=== PATIENT | male | born 1995 | race Caucasian/White ===

== ENCOUNTER 2024-11-20 22:20 | Emergency (ER) | payer MEDICAID ==
[~2024-11-20] VITALS: Ht 185.4 cm; Wt 88.6 kg
[2024-11-20 22:24] VITALS: BP 130/89; PULSE 74; RESP 18; TEMP 96.9; O2SAT 98
== END 2024-11-21 02:26 | disposition left against medical advice (07) ==
LOC: EMS 22:22
DX: R51.9 Headache, unspecified (principal); Z53.21 Procedure and treatment not carried out due to patient leaving prior to being seen by health care provider

== ENCOUNTER 2024-11-24 23:17 | Emergency (ER) | payer SELFPAY ==
[~2024-11-24] VITALS: Ht 185.4 cm; Wt 88.6 kg
[2024-11-24 23:22] VITALS: TEMP 98.1
[2024-11-25] LABS: PLATELET COUNT (AUTO) 307 K/uL (150-450); RED BLOOD CELL COUNT(AUTO) 4.72 MIL/uL (4.50-5.90); RED CELL DISTRIBUTION WIDTH 15.7 % (11.5-14.5); WHITE BLOOD COUNT (AUTO) 4.3 K/uL (4.5-11.0)
[2024-11-25 00:04] LABS: CREATININE 1.03 mg/dL (0.60-1.30); GLUCOSE,RANDOM 99 mg/dL (70-110); SODIUM SERUM 140 mmol/L (136-145); UREA NITROGEN, BLOOD 14 mg/dL (7-18)
[2024-11-25 00:05] LABS: CALCIUM, TOTAL 8.8 mg/dL (8.8-10.5); GLOMERULAR FILTR. RATE CALC > 60 mL/min (>60)
[2024-11-25 01:30] VITALS: BP 119/67; PULSE 103; RESP 20; O2SAT 96
== END 2024-11-25 01:45 | disposition home or self-care (01) ==
LOC: EMS 23:19
DX: F15.90 Other stimulant use, unspecified, uncomplicated (principal); F41.9 Anxiety disorder, unspecified; F20.9 Schizophrenia, unspecified; F31.9 Bipolar disorder, unspecified; J45.909 Unspecified asthma, uncomplicated; F12.90 Cannabis use, unspecified, uncomplicated; F17.210 Nicotine dependence, cigarettes, uncomplicated; Z88.0 Allergy status to penicillin; Z88.6 Allergy status to analgesic agent; Z88.8 Allergy status to other drugs, medicaments and biological substances
CPT/HCPCS: 99283; 80048; 82962; 85025; 36415; G0480

== ENCOUNTER 2024-12-20 12:38 | Emergency (ER) | payer MEDICAID ==
[~2024-12-20] VITALS: Ht 182.9 cm; Wt 86.4 kg
[2024-12-20 12:50] VITALS: TEMP 97.7
[2024-12-20] MEDS: PERTUSS(ACELL),DIPH,TET/PF 0.5 ML SYRINGE [ADULT] IM. ONE (14:27)
[2024-12-20] MEDS: ACETAMINOPHEN 500 MG TABLET PO ONE (14:28)
[2024-12-20] MEDS: BACITRACIN 0.9 GM PACKET OINTMENT TP ONE (14:52)
[2024-12-20 15:08] VITALS: BP 136/78; PULSE 87; RESP 16; O2SAT 96
== END 2024-12-20 15:09 | disposition home or self-care (01) ==
LOC: EMS 12:42
DX: S93.402A Sprain of unspecified ligament of left ankle, initial encounter (principal); S96.912A Strain of unspecified muscle and tendon at ankle and foot level, left foot, initial encounter; F20.9 Schizophrenia, unspecified; F31.9 Bipolar disorder, unspecified; J45.909 Unspecified asthma, uncomplicated; F41.9 Anxiety disorder, unspecified; F12.90 Cannabis use, unspecified, uncomplicated; F17.210 Nicotine dependence, cigarettes, uncomplicated; F15.90 Other stimulant use, unspecified, uncomplicated; Z88.0 Allergy status to penicillin; Z88.6 Allergy status to analgesic agent; Z88.8 Allergy status to other drugs, medicaments and biological substances; V43.52XA Car driver injured in collision with other type car in traffic accident, initial encounter; Y93.01 Activity, walking, marching and hiking; Y92.410 Unspecified street and highway as the place of occurrence of the external cause; Y99.8 Other external cause status
CPT/HCPCS: 73503; 90471; 90715; 99284